=== PATIENT | male | born 1965 | race African-American/Black ===

== ENCOUNTER 2020-05-28 23:17 | Inpatient (IN) | payer MEDICAID, OTHER ==
[~2020-05-28] VITALS: Ht 175.3 cm; Wt 57.2 kg
[2020-05-29 00:06] LABS: BASOPHILS % (AUTO) 0.5 % (0.0-2.0); EOSINOPHILS % (AUTO) 0.8 % (1.0-6.0); HEMATOCRIT 37.7 % (41-53); HEMOGLOBIN 12.1 g/dL (13.5-17.5); LYMPHOCYTES % (AUTO) 27.4 % (22.0-44.0); MEAN CORPUSCULAR HEMOGLOBIN 24.7 pg (26.0-34.0); MEAN CORPUSCULAR VOLUME 77 fL (80-100); MONOCYTES # (AUTO) 0.6 K/uL (0.1-1.0); MONOCYTES % (AUTO) 5.7 % (2.0-9.0); NEUTROPHILS # (AUTO) 7.2 K/uL (1.8-7.7); NEUTROPHILS % (AUTO) 65.6 % (40.0-70.0); PLATELET COUNT (AUTO) 353 K/uL (150-450); RED BLOOD CELL COUNT(AUTO) 4.87 MIL/uL (4.50-5.90); RED CELL DISTRIBUTION WIDTH 17.2 % (11.5-14.5)
[2020-05-29 00:14] LABS: AMPHET/METH SCREEN,URINE NEGATIVE (NEGATIVE); BARBITURATE SCREEN, URINE NEGATIVE (NEGATIVE); BENZODIAZEPINES SCREEN,URINE NEGATIVE (NEGATIVE); CANNABINOID SCREEN,URINE NEGATIVE (NEGATIVE); COCAINE SCREEN,URINE NEGATIVE (NEGATIVE); METHADONE SCREEN, URINE NEGATIVE (NEGATIVE); OPIATE SCREEN,URINE NEGATIVE (NEGATIVE)
[2020-05-29 00:15] LABS: ANION GAP 8 mmol/L (8-16); CALCIUM, TOTAL 9.8 mg/dL (8.8-10.5); CARBON DIOXIDE 30 mmol/L (22-29); CHLORIDE 107 mmol/L (98-107); GLOMERULAR FILTR. RATE CALC 49 mL/min (>60); GLUCOSE,RANDOM 144 mg/dL (70-110); POTASSIUM 5.2 mmol/L (3.5-5.1); SODIUM SERUM 145 mmol/L (136-145); UREA NITROGEN, BLOOD 36 mg/dL (7-18)
[2020-05-29 00:15] LABS: PHENCYCLIDINE SCREEN,URINE NEGATIVE (NEGATIVE)
[2020-05-29 00:21] LABS: ALANINE AMINOTRANSFERASE 31 U/L (12-78); ALBUMIN 3.9 g/dL (3.4-5.0); ALKALINE PHOSPHATASE 96 U/L (46-116); ASPARTATE AMINOTRANSFERASE 19 U/L (15-37); BILIRUBIN,TOTAL 0.2 mg/dL (0.1-1.0); TOTAL PROTEIN, SERUM 8.1 g/dL (6.4-8.2)
[2020-05-29 02:20] LABS: COVID AG,FIA SOURCE NASOPHARYNGEAL
[2020-05-29] MEDS ORDERED: LORazepam 2 MG TABLET PO PRN (11:00)
[2020-05-29] MEDS ORDERED: HALOPERIDOL 5 MG TABLET PO PRN (11:00)
[2020-05-29] MEDS ORDERED: ZOLPIDEM TARTRATE 10 MG TABLET PO PRN (11:00)
[2020-05-29 12:40] VITALS: BP 117/80
[2020-05-29 16:24] VITALS: BP 129/77
[2020-05-29] MEDS ORDERED: SODIUM POLYSTYRENE SULFONATE 15 GM/60 ML SUSPENSION BOTTLE PO ONE (18:30)
[2020-05-30 01:43] VITALS: BP 122/74
[2020-05-30] MEDS ORDERED: SODIUM POLYSTYRENE SULFONATE 15 GM/60 ML SUSPENSION BOTTLE PO ONE ×3 (06:30→09:30)
[2020-05-30 07:51] LABS: CHOL/HDL RATIO 3.4 (4.2-7.3); FREE T4 (FREE THYROXINE) 0.82 ng/dL (0.76-1.46); POTASSIUM 5.7 mmol/L (3.5-5.1); THYROID STIMULATING HORMONE 0.68 uIU/mL (0.36-3.74)
[2020-05-30] MEDS ORDERED: ALBUTEROL SULFATE HFA 90 MCG/PUFF 8 GM INHALER IH PRN (08:00)
[2020-05-30] MEDS ORDERED: PETROLATUM,WHITE 28 GM JELLY TP PRN (08:00)
[2020-05-30] MEDS ORDERED: DOCUSATE SODIUM 100 MG CAPSULE PO PRN (08:00)
[2020-05-30] MEDS ORDERED: GuaiFENesin/D-METHORPHAN [SUGAR-FREE] 200-20MG/10 ML SYRUP UDCUP PO PRN (08:00)
[2020-05-30] MEDS ORDERED: IBUPROFEN 400 MG TABLET PO PRN (08:00)
[2020-05-30] MEDS ORDERED: MAGNESIUM HYDROXIDE SUSPENSION 30 ML UDCUP PO PRN (08:00)
[2020-05-30] MEDS ORDERED: MAG HYDROX/AL HYDROX/SIMETH ES 30 ML SUSPENSION UDCUP PO PRN (08:00)
[2020-05-30] MEDS ORDERED: NICOTINE 14 MG/24 HOUR PATCH TD PRN (08:00)
[2020-05-30] MEDS ORDERED: ONDANSETRON HCL 4 MG TABLET PO PRN (08:00)
[2020-05-30] MEDS ORDERED: CloNIDine HCL 0.1 MG TABLET PO PRN (08:00)
[2020-05-30] MEDS ORDERED: LOPERAMIDE HCL 2 MG CAPSULE PO PRN (08:00)
[2020-05-30] MEDS ORDERED: ACETAMINOPHEN 325 MG TABLET PO PRN (08:00)
[2020-05-30 10:46] VITALS: BP 139/89
[2020-05-30 18:48] VITALS: BP 149/87
[2020-05-31 06:47] VITALS: BP 135/74
[2020-05-31 08:25] VITALS: BP 127/68
[2020-05-31] MEDS: MULTIVITAMINS, THERAPEUTIC TABLET PO SCH (08:26)
[2020-05-31 16:12] VITALS: BP 142/70
[2020-05-31] MEDS: QUEtiapine FUMARATE 100 MG TABLET PO SCH (20:00)
[2020-06-01 00:36] VITALS: BP 139/78
[2020-06-01] MEDS: MULTIVITAMINS, THERAPEUTIC TABLET PO SCH (09:40)
[2020-06-01 09:57] VITALS: BP 143/82
[2020-06-01 16:21] VITALS: BP 121/87
[2020-06-01] MEDS: QUEtiapine FUMARATE 100 MG TABLET PO SCH (20:22)
[2020-06-02 02:22] VITALS: BP 141/78
[2020-06-02 08:23] VITALS: BP 132/77
[2020-06-02] MEDS: MULTIVITAMINS, THERAPEUTIC TABLET PO SCH (08:24)
[2020-06-02] MEDS: MetroNIDAZOLE 500 MG TABLET PO SCH ×3 (09:00→16:59)
[2020-06-02 16:26] VITALS: BP 132/81
[2020-06-02] MEDS: QUEtiapine FUMARATE 100 MG TABLET PO SCH (19:56)
[2020-06-03 00:26] VITALS: BP 118/51
[2020-06-03 07:38] LABS: BASOPHILS % (AUTO) 0.9 % (0.0-2.0); EOSINOPHILS % (AUTO) 1.3 % (1.0-6.0); HEMATOCRIT 33.2 % (41-53); HEMOGLOBIN 10.6 g/dL (13.5-17.5); LYMPHOCYTES # (AUTO) 2.2 K/uL (1.0-4.8); LYMPHOCYTES % (AUTO) 31.7 % (22.0-44.0); MEAN CORPUSCULAR HEMOGLOBIN 24.8 pg (26.0-34.0); MEAN CORPUSCULAR HGB CONC 31.9 G/dL (31.0-37.0); MEAN CORPUSCULAR VOLUME 78 fL (80-100); MONOCYTES % (AUTO) 13.9 % (2.0-9.0); NEUTROPHILS # (AUTO) 3.6 K/uL (1.8-7.7); NEUTROPHILS % (AUTO) 52.2 % (40.0-70.0); PLATELET COUNT (AUTO) 322 K/uL (150-450); RED BLOOD CELL COUNT(AUTO) 4.28 MIL/uL (4.50-5.90)
[2020-06-03 07:46] LABS: COVID AG,FIA SOURCE NASOPHARYNGEAL
[2020-06-03 07:56] LABS: ANION GAP 8 mmol/L (8-16); CALCIUM, TOTAL 8.9 mg/dL (8.8-10.5); CARBON DIOXIDE 26 mmol/L (22-29); CHLORIDE 105 mmol/L (98-107); CREATININE 0.85 mg/dL (0.60-1.30); GLOMERULAR FILTR. RATE CALC > 60 mL/min (>60); GLUCOSE,RANDOM 118 mg/dL (70-110); POTASSIUM 4.3 mmol/L (3.5-5.1); SODIUM SERUM 139 mmol/L (136-145); UREA NITROGEN, BLOOD 21 mg/dL (7-18)
[2020-06-03 08:35] LABS: APPEARANCE,URINE CLEAR (CLEAR); BILIRUBIN,URINE NEGATIVE (NEGATIVE); GLUCOSE, URINE (UA) NEGATIVE (NEGATIVE); KETONES,URINE NEGATIVE (NEGATIVE); LEUKOCYTE ESTERASE ,URINE NEGATIVE (NEGATIVE); NITRATE,URINE NEGATIVE (NEGATIVE); OCCULT BLOOD,URINE NEGATIVE (NEGATIVE); PROTEIN,URINE NEGATIVE (NEGATIVE); UROBILINOGEN,URINE 0.2 mg/dL (<=1.0)
[2020-06-03] MEDS: MULTIVITAMINS, THERAPEUTIC TABLET PO SCH (08:56)
[2020-06-03] MEDS: FOLIC ACID 1 MG TABLET PO SCH (08:56)
[2020-06-03] MEDS: THIAMINE 100 MG TABLET PO SCH (08:56)
[2020-06-03] MEDS: MetroNIDAZOLE 500 MG TABLET PO SCH ×3 (08:56→15:55)
[2020-06-03] MEDS ORDERED: THIAMINE 100 MG/ML 2 ML VIAL IM SCH (09:00)
[2020-06-03] MEDS ORDERED: THIAMINE 100 MG TABLET PO SCH (09:00)
[2020-06-03 16:46] VITALS: BP 139/81
[2020-06-03] MEDS ORDERED: QUEtiapine FUMARATE 200 MG TABLET PO SCH (21:00)
[2020-06-04 03:30] VITALS: BP 122/77
[2020-06-04] MEDS: FOLIC ACID 1 MG TABLET PO SCH (08:04)
[2020-06-04] MEDS: MULTIVITAMINS, THERAPEUTIC TABLET PO SCH (08:04)
[2020-06-04] MEDS: THIAMINE 100 MG TABLET PO SCH (08:04)
[2020-06-04] MEDS: MetroNIDAZOLE 500 MG TABLET PO SCH ×3 (08:04→16:36)
[2020-06-04 08:20] VITALS: BP 113/73
[2020-06-04 16:19] VITALS: BP 139/72
[2020-06-04] MEDS: QUEtiapine FUMARATE 300 MG TABLET PO SCH (20:17)
[2020-06-05 06:39] VITALS: BP 134/91
[2020-06-05 08:13] VITALS: BP 117/77
[2020-06-05] MEDS: MetroNIDAZOLE 500 MG TABLET PO SCH ×3 (08:32→16:07)
[2020-06-05] MEDS: MULTIVITAMINS, THERAPEUTIC TABLET PO SCH (08:32)
[2020-06-05] MEDS: THIAMINE 100 MG TABLET PO SCH (08:33)
[2020-06-05] MEDS: FOLIC ACID 1 MG TABLET PO SCH (08:33)
[2020-06-05 16:41] VITALS: BP 136/79
[2020-06-05] MEDS: QUEtiapine FUMARATE 300 MG TABLET PO SCH (20:57)
[2020-06-06 05:14] VITALS: BP 128/75
[2020-06-06 08:48] VITALS: BP 135/78
[2020-06-06] MEDS: FOLIC ACID 1 MG TABLET PO SCH (09:00)
[2020-06-06] MEDS: MULTIVITAMINS, THERAPEUTIC TABLET PO SCH (09:00)
[2020-06-06] MEDS: MetroNIDAZOLE 500 MG TABLET PO SCH ×3 (09:01→16:03)
[2020-06-06] MEDS: THIAMINE 100 MG TABLET PO SCH (09:01)
[2020-06-06 16:22] VITALS: BP 119/70
[2020-06-06] MEDS: QUEtiapine FUMARATE 300 MG TABLET PO SCH (20:04)
[2020-06-07 00:52] VITALS: BP 130/79
[2020-06-07] MEDS: THIAMINE 100 MG TABLET PO SCH (08:33)
[2020-06-07] MEDS: MULTIVITAMINS, THERAPEUTIC TABLET PO SCH (08:34)
[2020-06-07] MEDS: MetroNIDAZOLE 500 MG TABLET PO SCH ×3 (08:34→16:26)
[2020-06-07] MEDS: FOLIC ACID 1 MG TABLET PO SCH (08:34)
[2020-06-07 08:56] VITALS: BP 142/74
[2020-06-07 16:18] VITALS: BP 127/73
[2020-06-07] MEDS: QUEtiapine FUMARATE 300 MG TABLET PO SCH (20:47)
[2020-06-08 01:14] VITALS: BP 130/73
[2020-06-08 08:00] VITALS: BP 125/75
[2020-06-08] MEDS: THIAMINE 100 MG TABLET PO SCH (08:12)
[2020-06-08] MEDS: FOLIC ACID 1 MG TABLET PO SCH (08:12)
[2020-06-08] MEDS: MetroNIDAZOLE 500 MG TABLET PO SCH ×3 (08:12→16:07)
[2020-06-08] MEDS: MULTIVITAMINS, THERAPEUTIC TABLET PO SCH (08:12)
[2020-06-08 16:16] VITALS: BP 128/77
[2020-06-08] MEDS: QUEtiapine FUMARATE 300 MG TABLET PO SCH (20:17)
[2020-06-09 05:03] VITALS: BP 126/74
[2020-06-09 08:25] VITALS: BP 150/83
[2020-06-09] MEDS: FOLIC ACID 1 MG TABLET PO SCH (09:18)
[2020-06-09] MEDS: THIAMINE 100 MG TABLET PO SCH (09:18)
[2020-06-09] MEDS: MULTIVITAMINS, THERAPEUTIC TABLET PO SCH (09:18)
[2020-06-09 09:42] VITALS: BP 134/81
[2020-06-09 16:21] VITALS: BP 142/89
[2020-06-09] MEDS: QUEtiapine FUMARATE 300 MG TABLET PO SCH ×2 (20:25→21:32)
[2020-06-10 00:31] VITALS: BP 138/83
[2020-06-10 07:16] LABS: COVID AG,FIA SOURCE NASOPHARYNGEAL
[2020-06-10] MEDS: FOLIC ACID 1 MG TABLET PO SCH (08:22)
[2020-06-10] MEDS: THIAMINE 100 MG TABLET PO SCH (08:22)
[2020-06-10] MEDS: MULTIVITAMINS, THERAPEUTIC TABLET PO SCH (08:22)
[2020-06-10 08:35] VITALS: BP 168/96
[2020-06-10 08:48] VITALS: BP 168/96
[2020-06-10 09:05] VITALS: BP 138/80
[2020-06-10 09:24] VITALS: BP 138/80
[2020-06-10 16:12] VITALS: BP 134/65
[2020-06-10] MEDS: QUEtiapine FUMARATE 300 MG TABLET PO SCH (20:29)
[2020-06-11 00:39] VITALS: BP 114/68
[2020-06-11] MEDS: MULTIVITAMINS, THERAPEUTIC TABLET PO SCH (08:11)
[2020-06-11] MEDS: FOLIC ACID 1 MG TABLET PO SCH (08:11)
[2020-06-11] MEDS: THIAMINE 100 MG TABLET PO SCH (08:11)
[2020-06-11 08:19] VITALS: BP 142/92
[2020-06-11 16:12] VITALS: BP 126/77
[2020-06-11] MEDS: QUEtiapine FUMARATE 300 MG TABLET PO SCH (20:17)
[2020-06-12 00:13] VITALS: BP 102/69
[2020-06-12 08:04] VITALS: BP 141/72
[2020-06-12] MEDS: FOLIC ACID 1 MG TABLET PO SCH (08:04)
[2020-06-12] MEDS: MULTIVITAMINS, THERAPEUTIC TABLET PO SCH (08:04)
[2020-06-12] MEDS: THIAMINE 100 MG TABLET PO SCH (08:05)
[2020-06-12 16:35] VITALS: BP 132/80
[2020-06-12] MEDS: QUEtiapine FUMARATE 300 MG TABLET PO SCH (20:35)
[2020-06-13 06:30] VITALS: BP 139/94
[2020-06-13 08:12] VITALS: BP 102/67
[2020-06-13] MEDS: THIAMINE 100 MG TABLET PO SCH (09:24)
[2020-06-13] MEDS: FOLIC ACID 1 MG TABLET PO SCH (09:24)
[2020-06-13] MEDS: MULTIVITAMINS, THERAPEUTIC TABLET PO SCH (09:24)
[2020-06-13 16:29] VITALS: BP 134/86
[2020-06-13] MEDS: QUEtiapine FUMARATE 300 MG TABLET PO SCH (20:36)
[2020-06-14] VITALS: BP 137/80
[2020-06-14] MEDS: THIAMINE 100 MG TABLET PO SCH (08:02)
[2020-06-14] MEDS: MULTIVITAMINS, THERAPEUTIC TABLET PO SCH (08:02)
[2020-06-14] MEDS: FOLIC ACID 1 MG TABLET PO SCH (08:02)
[2020-06-14 08:39] VITALS: BP 151/80
[2020-06-14 09:18] VITALS: BP 143/98
[2020-06-14 13:57] VITALS: BP 135/81
[2020-06-14 16:09] VITALS: BP 131/67
[2020-06-14] MEDS: QUEtiapine FUMARATE 300 MG TABLET PO SCH (20:21)
[2020-06-15 00:57] VITALS: BP 133/78
[2020-06-15 08:43] VITALS: BP 125/69
[2020-06-15] MEDS: MULTIVITAMINS, THERAPEUTIC TABLET PO SCH (09:21)
[2020-06-15] MEDS: THIAMINE 100 MG TABLET PO SCH (09:22)
[2020-06-15] MEDS: FOLIC ACID 1 MG TABLET PO SCH (09:22)
[2020-06-15 16:15] VITALS: BP 125/83
[2020-06-15] MEDS: QUEtiapine FUMARATE 300 MG TABLET PO SCH (21:39)
[2020-06-16 02:11] VITALS: BP 122/66
[2020-06-16 08:22] VITALS: BP 150/92
[2020-06-16] MEDS: FOLIC ACID 1 MG TABLET PO SCH (08:35)
[2020-06-16] MEDS: MULTIVITAMINS, THERAPEUTIC TABLET PO SCH (08:35)
[2020-06-16] MEDS: THIAMINE 100 MG TABLET PO SCH (08:35)
[2020-06-16] MEDS ORDERED: QUET300T2 PO (11:21)
== END 2020-06-16 13:45 | disposition home or self-care (01) | DRG 750 ==
LOC: EMS 23:19 → B2S 05-29 10:37
PROVIDERS: ADMIT Psychiatry & Neurology Child & Adolescent Psychiatry; ATTEND Psychiatry & Neurology Child & Adolescent Psychiatry
DX: F20.0 Paranoid schizophrenia (principal); E44.0 Moderate protein-calorie malnutrition; E87.5 Hyperkalemia; Z59.0 Homelessness; Z20.822 Contact with and (suspected) exposure to COVID-19; F10.129 Alcohol abuse with intoxication, unspecified; F17.210 Nicotine dependence, cigarettes, uncomplicated; D64.9 Anemia, unspecified; Z68.1 Body mass index [BMI] 19.9 or less, adult
CPT/HCPCS: 70450; 80053; 81003; 83036; 84132; 84439; 84443; 85025; 87045; 87426; 99285; G0480